=== PATIENT | male | born 1965 | race Caucasian/White ===

== ENCOUNTER 2016-12-28 10:47 | Emergency (ER) | payer OTHER ==
[~2016-12-28] VITALS: Ht 177.8 cm; Wt 102.6 kg
[2016-12-28] MEDS ORDERED: CLEOCIN300 MG PO (13:06)
[2016-12-28] MEDS ORDERED: NAPROSYN500 MG PO (13:06)
[2016-12-28 13:17] VITALS: BP 186/118
== END 2016-12-28 13:17 | disposition home or self-care (01) ==
LOC: EME 10:47
PROC: 0H96XZZ Drainage of Back Skin, External Approach (ICD-10-PCS; principal; 2016-12-28)
DX: L72.3 Sebaceous cyst (principal); L08.9 Local infection of the skin and subcutaneous tissue, unspecified; R03.0 Elevated blood-pressure reading, without diagnosis of hypertension; F17.200 Nicotine dependence, unspecified, uncomplicated; E11.9 Type 2 diabetes mellitus without complications
CPT/HCPCS: 87070; 87075; 87076; 87205; 99281; 99284